=== PATIENT | male | born 1975 | race Caucasian/White ===

== ENCOUNTER 2017-06-20 03:42 | Inpatient (IN) | payer MEDICAID, OTHER ==
[~2017-06-20] VITALS: Ht 167.6 cm; Wt 93.0 kg
[2017-06-20] MEDS ORDERED: KETOROLAC 30MG/ML VIAL IV STA (04:22)
[2017-06-20] MEDS ORDERED: ONDANSETRON HCL 4MG/2ML VIAL IV STA (04:22)
[2017-06-20] MEDS ORDERED: SODIUM CHLORIDE 0.9% 1,000 ML IV ONE (04:22)
[2017-06-20 04:42] LABS: BASOPHILS % 0.9 % (0.0-2.0); EOSINOPHILS % 4.1 % (0.0-5.0); HEMATOCRIT. 41.6 % (42.0-52.0); HEMOGLOBIN. 14.5 g/dL (14.0-18.0); LYMPHOCYTES % 33.2 % (20.0-50.0); MEAN CORPUSCULAR HEMOGLOBIN 30.1 pg (28.0-32.0); MEAN PLATELET VOLUME 8.6 fl (7.4-10.4); MONOCYTES % 9.6 % (2.0-8.0); NEUTROPHILS % 52.2 % (40.0-76.0); PLATELET 247 x1000/uL (130-400); RED BLOOD CELL COUNT 4.83 mill/uL (4.7-6.1); RED CELL DISTRIBUTION WIDTH 13.6 % (11.6-14.6)
[2017-06-20 04:46] LABS: INR 1.1
[2017-06-20 05:14] LABS: CARBON DIOXIDE 24 mEq/L (21-32); CHLORIDE 108 mEq/L (98-107)
[2017-06-20] MEDS ORDERED: MORPHINE SULFATE 4 MG/ML CPJ (NOT FOR IM USE) IV ONE ×2 (06:15→07:45)
[2017-06-20] MEDS ORDERED: LORAZEPAM 2MG/ML CPJ IV PRN (08:30)
[2017-06-20] MEDS ORDERED: IPRATROPIUM/ALBUTEROL 0.5-3(2.5)MG/3ML NEB INH PRN (08:30)
[2017-06-20] MEDS ORDERED: KETOROLAC 15MG/ML VIAL IV PRN (08:30)
[2017-06-20] MEDS ORDERED: ONDANSETRON HCL 4MG/2ML VIAL IV PRN (08:30)
[2017-06-20] MEDS ORDERED: ACETAMINOPHEN 325MG TABLET PO PRN (08:30)
[2017-06-20] MEDS ORDERED: MAGNESIUM/ALUMINUM HYDROXIDE/SIMETHICONE 30ML UDC PO PRN (08:30)
[2017-06-20] MEDS ORDERED: CLONIDINE 0.1MG TABLET PO PRN (08:30)
[2017-06-20 13:00] VITALS: BP 103/52
[2017-06-20] MEDS ORDERED: ENOXAPARIN 40MG/0.4ML SYR SUBCUT SCH (14:00)
[2017-06-20] MEDS ORDERED: METRONIDAZOLE 500 MG PREMIX 100 ML IV SCH (14:00)
[2017-06-20] MEDS ORDERED: LEVOFLOXACIN 500MG PREMIX 100 ML IV SCH (14:00)
[2017-06-20] MEDS: DEXT 5%/0.45% NACL 1000ML 1,000 ML IV SCH (14:53)
[2017-06-20] MEDS: PIPERACILLIN/TAZ 3.375G PREMIX 50 ML IV SCH ×2 (17:21→23:35)
[2017-06-20] MEDS ORDERED: NAPR-679 PO (19:54)
[2017-06-20 20:00] VITALS: BP 110/63
[2017-06-20 20:01] LABS: *AMPHETAMINES SCREEN URINE NEGATIVE (NEGATIVE); *BARBITURATES SCREEN URINE NEGATIVE (NEGATIVE); *BENZODIAZEPINES SCREEN URINE NEGATIVE (NEGATIVE); *COCAINE SCREEN URINE NEGATIVE (NEGATIVE); CANNABINOID URINE SCREEN NEGATIVE (NEGATIVE); METHADONE URINE SCREEN NEGATIVE (NEGATIVE); OPIATES URINE SCREEN PRESUMTIVE POSITIVE (NEGATIVE); PHENCYCLIDINE URINE SCREEN NEGATIVE (NEGATIVE)
[2017-06-20] MEDS: FAMOTIDINE 20MG/2ML VIAL IV SCH (20:48)
[2017-06-20] MEDS: ENOXAPARIN 30MG/0.3ML SYR SUBCUT SCH (20:49)
[2017-06-20] MEDS ORDERED: ZOLPIDEM TARTRATE 5MG TABLET PO PRN (21:00)
[2017-06-21] VITALS: BP 100/63
[2017-06-21] MEDS: DEXT 5%/0.45% NACL 1000ML 1,000 ML IV SCH (02:00)
[2017-06-21 04:00] VITALS: BP 112/62
[2017-06-21] MEDS: PIPERACILLIN/TAZ 3.375G PREMIX 50 ML IV SCH ×2 (05:21→13:17)
[2017-06-21 06:48] LABS: BASOPHILS % 0.9 % (0.0-2.0); EOSINOPHILS % 4.5 % (0.0-5.0); HEMATOCRIT. 39.7 % (42.0-52.0); HEMOGLOBIN. 13.7 g/dL (14.0-18.0); LYMPHOCYTES % 35.1 % (20.0-50.0); MEAN CORPUSCULAR HEMOGLOBIN 30.3 pg (28.0-32.0); MEAN CORPUSCULAR VOLUME 87.7 fL (80.0-94.0); MEAN PLATELET VOLUME 8.9 fl (7.4-10.4); MONOCYTES % 9.1 % (2.0-8.0); NEUTROPHILS % 50.4 % (40.0-76.0); PLATELET 210 x1000/uL (130-400); RED BLOOD CELL COUNT 4.52 mill/uL (4.7-6.1); RED CELL DISTRIBUTION WIDTH 13.7 % (11.6-14.6)
[2017-06-21 07:51] LABS: CARBON DIOXIDE 31 mEq/L (21-32); CHLORIDE 106 mEq/L (98-107)
[2017-06-21 08:00] VITALS: BP 109/58
[2017-06-21] MEDS: FAMOTIDINE 20MG/2ML VIAL IV SCH (09:16)
[2017-06-21] MEDS: ENOXAPARIN 30MG/0.3ML SYR SUBCUT SCH (09:18)
[2017-06-21 13:55] VITALS: BP 109/58
== END 2017-06-21 16:35 | disposition home or self-care (01) ==
LOC: ER 07:09 → 6EST 08:24 → ENRESERV 11:16
PROVIDERS: ADMIT Internal Medicine; ATTEND Internal Medicine
DX: K80.20 Calculus of gallbladder without cholecystitis without obstruction (principal); E44.1 Mild protein-calorie malnutrition; Z68.33 Body mass index [BMI] 33.0-33.9, adult; Z79.899 Other long term (current) drug therapy
CPT/HCPCS: 36415; 74176; 76705; 78227; 80053; 80061; 80305; 83036; 83690; 85025; 85610; 96361; 96374; 96375; 96376; 99285; A9537; J1650; J1885; J1956; J2270; J2405; J2543; J3490; J7030

== ENCOUNTER 2017-08-02 16:20 | Emergency (ER) | payer MEDICAID ==
[~2017-08-02] VITALS: Ht 175.3 cm; Wt 80.0 kg
[~2017-08-02 16:20] MED LIST: NAPR-679 PO
[2017-08-02 18:56] VITALS: BP 110/70
== END 2017-08-02 19:02 | disposition home or self-care (01) ==
LOC: ER 16:51
DX: S16.1XXA Strain of muscle, fascia and tendon at neck level, initial encounter (principal); M54.9 Dorsalgia, unspecified; V43.52XA Car driver injured in collision with other type car in traffic accident, initial encounter; Y92.410 Unspecified street and highway as the place of occurrence of the external cause; Y93.9 Activity, unspecified; Y99.9 Unspecified external cause status
CPT/HCPCS: 99283

== ENCOUNTER 2024-12-03 01:23 | Emergency (ER) | payer MEDICAID ==
[~2024-12-03] VITALS: Ht 172.7 cm; Wt 91.0 kg
[2024-12-03 01:35] VITALS: O2SAT 99
[2024-12-03] MEDS: ONDANSETRON HCL 4MG TABLET PO ONE (01:54)
[2024-12-03] MEDS: KETOROLAC 15MG/ML VIAL IM ONE (01:54)
[2024-12-03 02:50] LABS: BASOPHILS % 0.4 % (0.0-2.0); EOSINOPHILS % 1.4 % (0.0-5.0); HEMATOCRIT. 44.6 % (42.0-52.0); LYMPHOCYTES % 9.9 % (20.0-50.0); MEAN CORPUSCULAR HEMOGLOBIN 29.9 pg (28.0-32.0); MEAN CORPUSCULAR HGB CONC 33.7 g/dL (31.0-37.0); MEAN CORPUSCULAR VOLUME 88.6 fL (80.0-94.0); MEAN PLATELET VOLUME 8.7 fl (7.4-10.4); MONOCYTES % 5.8 % (2.0-8.0); NEUTROPHILS % 82.5 % (40.0-76.0); PLATELET 257 x1000/uL (130-400); RED BLOOD CELL COUNT 5.03 mill/uL (4.7-6.1); RED CELL DISTRIBUTION WIDTH 14.1 % (11.6-14.6); WHITE BLOOD COUNT 14.1 x1000/uL (4.5-11.0)
[2024-12-03 03:05] LABS: CHLORIDE 106 mEq/L (98-107); POTASSIUM 3.5 mEq/L (3.5-5.1); SODIUM 143 mEq/L (136-145)
[2024-12-03 03:06] LABS: CARBON DIOXIDE 28 mEq/L (21-32)
[2024-12-03 03:07] LABS: CALCIUM 9.6 mg/dL (8.7-10.4)
[2024-12-03 03:11] LABS: GLUCOSE 106 mg/dL (70-105)
[2024-12-03 03:12] LABS: UREA NITROGEN BLOOD 12 mg/dL (9-23)
[2024-12-03 03:13] LABS: ALANINE AMINOTRANSFERASE 27 IU/L (10-49); ALBUMIN 4.6 g/dL (3.2-4.8)
[2024-12-03 03:14] LABS: BILIRUBIN DIRECT 0.2 mg/dL (<=3.0); BILIRUBIN TOTAL 0.6 mg/dL (0.1-1.0)
[2024-12-03 04:55] LABS: CLARITY URINE CLEAR (CLEAR); COLOR URINE DARK YELLOW (YELLOW); GLUCOSE URINE NEGATIVE (NEGATIVE); KETONES URINE TRACE (NEGATIVE); LEUKOCYTE ESTERASE URINE NEGATIVE (NEGATIVE); NITRITE URINE NEGATIVE (NEGATIVE); OCCULT BLOOD URINE NEGATIVE (NEGATIVE); PH URINE 5.5 (4.5-8.0); PROTEIN URINE TRACE (NEGATIVE); SPECIFIC GRAVITY URINE 1.037 (1.005-1.030)
[2024-12-03] MEDS: CEFTRIAXONE 1GM/50ML 50 ML IV ONE (04:55)
[2024-12-03 05:13] LABS: SQUAMOUS EPITHELIAL CELL URINE FEW /lpf (RARE/1+)
[2024-12-03 05:14] LABS: RBC URINE 0-2 /hpf (0-2); WBC URINE 0-2 /hpf (0-2)
[2024-12-03 05:15] LABS: BACTERIA URINE NONE SEEN
[2024-12-03] MEDS: METRONIDAZOLE 500 MG PREMIX 100 ML IV ONE (05:17)
[2024-12-03 08:10] VITALS: BP 106/66; PULSE 54; RESP 12; TEMP 36.9; O2SAT 100
[2024-12-03 11:10] LABS: ASPARTATE AMINOTRANSFERASE 27 IU/L (<34)
== END 2024-12-03 08:24 | disposition short-term general hospital (02) ==
LOC: ER 01:34 → EDBEDREQ 04:34 → ER 08:24
DX: K81.9 Cholecystitis, unspecified (principal); Z79.899 Other long term (current) drug therapy
CPT/HCPCS: 99285; 96365; 76705; 80076; 80048; 81003; 83690; 85025; 36415; 96368; 84450; 96372; J1885; Q0162; J0696; J3490